=== PATIENT | female | born 1950 | race Caucasian/White ===

== ENCOUNTER → 2018-09-16 | Outpatient (CLI) | payer OTHER ==
[~2018-09-16] VITALS: Ht 162.6 cm; Wt 110.7 kg
[~2018-09-16] MED LIST: ADULT LOW DOSE81 MG PO; ALLEGRA ALLERG180 MG PO; ALLEGRA180 MG PO; CENTRUM SILVER1 EAC1 PO; CENTRUM SILVER1 EAC4 PO; CRESTOR40 MG PO; DIOVAN HCT 3201 EACH PO; DIPHENHIST50 MG PO; FISH OIL 1,0001 EAC5 PO; LIPITOR80 MG PO; OMEPRAZOLE OR; PREDNISONE 20 M20 MG PO; PRILOSEC OTC20 MG PO; TOPROL XL50 MG PO; TURMERIC500 M1 PO; VITAMIN D2000 UNIT PO; ZESTORETIC 20-1 EAC3 PO; ZOLOFT OR; ZOLOFT50 MG PO; ZYRTEC10 M5 PO
[2018-09-16 07:11] VITALS: BP 188/90
[2018-09-16 07:14] LABS: HEMATOCRIT 44.1 % (37.0-47.0); HEMOGLOBIN 14.7 gm/dL (12.0-15.0); MCH 30.3 pg (26.0-34.0); MCHC 33.3 g/dL (28.0-37.0); RBC 4.84 mil/uL (4.20-5.00); RDW 13.9 % (10.5-14.5); WBC 7.9 thou/uL (4.0-11.0)
[2018-09-16 07:21] LABS: CALCIUM 9.7 mg/dL (8.5-10.1); CREATININE 0.8 mg/dL (0.6-1.0); POTASSIUM 4.3 mmol/L (3.5-5.1)
--- NOTE | 2018-09-16 08:20 | EKG ---
[place] [address] [facility] [place] [address] ELECTROCARDIOGRAM REPORT Name: HUNTER ROBERTS Room #: REG CL Helio#: [id number] ������������������ Admission: 09/16/18 ������������������ Attend Phys: Nic Betancourt MD, Discharge: ������������������ Date of : 52 Report #: [id number] ����������������������������������������������������������������� [id number] THIS REPORT FOR: //name// [facility] Test Date: 2018-09-16 Test Time: 07:35:25 Pat Name: HUNTER ROBERTS Department: Room: Gender: F [employer] Team Member: Rosy OAKES : 1950 Requested By: Nic Betancourt Order Number: [id number] MD: Charles Byrd Measurements Intervals [place] Rate: 82 P: 19 CT: 178 QRS: 12 QRSD: 88 T: 39 QT: 372 QTc: 435 Interpretive Statements Sinus rhythm Abnormal R-wave progression, early transition Compared to ECG 12/02/2009 20:08:12 Poor R-wave progression no longer present Electronically Signed On 09-16-2018 8:20:13 HORTICULTURAL MANAGER by Charles Byrd [email or web address] ��������������������������������������������� <ELECTRONICALLY SIGNED> ���������������������������������������� By: Charles Byrd MD ��������������������������������������������� 09/16/18819 4 4 Charles Byrd MD /RICHARD
--- NOTE | 2018-09-16 18:27 | CATHLAB ---
[facility] [address] [place] [address] INVASIVE PROCEDURE REPORT Name: HUNTER ROBERTS Room #: REG Helio#: [id number] ������������� Admission: 09/16/18 ������������� Attend Phys: Nic Betancourt, Discharge: ��� ������������� ��� Date of : 52 Date of Service: 09/16/18 1827 �� Report #: [id number] �������� ��������������������������������������������[id number] THIS REPORT FOR: //name// APPROVED REPORT Study performed: 09/16/2018 07:36:44 Patient Details Patient Status: Out-Patient Room #: The patient is a 68 year-old female Event Personnel Nic Betancourt Senior Loss Control Specialist, Javier Breaux RN, Shay Ha Mahmood, Amber Monitor Procedures Performed Art Access - R femoral artery* 23263 Initial Mod Sed Same Phys/QHP Gr5y 683126 38216 Mod Sed Same Phys/QHP Ea 688273 Left Heart Cath w/or w/o Coronaries 8010691 [facility] Aortogram Abdominal Peripheral Angio 085639 Renal Bilateral Peripheral Angiography [id number] CVRENALBIL Hemostasis w/ Mynx Indication Chest pain Procedure Narrative The patient was brought electively to the Cardiac Catheterization Laboratory and was prepped and draped in a sterile manner. The Right Groin^ was infiltrated with 1% Lidocaine subcutaneous anesthesia. A PINNACLE 6FR Sheath #[id number] sheath was inserted into the RFA^. Coronary angiography was performed using coronary diagnostic catheters. The right coronary system was accessed and visualized with a JR 4 catheter. The left coronary system was accessed and visualized with a JL 4 catheter. The left ventricle was accessed and visualized with a Pigtail catheter. Left ventricular/Aortic Valve gradient assessed via catheter pullback. Left ventriculogram was performed in MANLEY projection. An aortogram of the abdominal aorta was performed. Pre-demployment femoral angiogram was performed . [facility] [place] [address] INVASIVE PROCEDURE REPORT Name: HUNTER ROBERTS BOBBY Room #: [facility] Helio#: [id number] ������������� Admission: 09/16/18 ������������� Attend Phys: Nic Betancourt, Discharge: ��� ������������� ��� Date of : 52 Date of Service: 09/16/18 1827 �� Report #: [id number] �������� ��������������������������������������������[id number] Closure device was deployed with a 6 Fr Mynx. The patient tolerated the procedure well and there were no complications associated with the procedure. There was no hematoma. Intraoperative Conscious Sedation Sedation start time: 08:53 Case end Time: 09:10 Fentanyl 50 mcg Versed 1.5 mg Fluoro Time: 1.25 minutes Dose: DAP 3699.00 cGycm2 431 mGy Contrast Type and Amount: Omnipaque 115 ml Hemodynamics The aortic pressure is 172/66 mmHg with a mean of 74 mmHg. The left ventricular pressure is 191/14 mmHg with a mean of mmHg. The left ventricular end diastolic pressure is 25 mmHg. Conclusion #1 normal left ventricular size and hyperdynamic LV function EF 60-65% #2 left main moderate size with mild distal tapered narrowing 20% giving rise to LAD and circumflex #3 LAD extends around the apex previously placed stent proximally is mild in-stent restenosis moderate disease of 40-50% distal to that segment extends around the apex. #4 circumflex OM mildly diseased no occlusive disease. #5 dominant right coronary artery with a mid vessel stent previously placed mild in-stent restenosis large preserved distal RCA PDA MARCEL widely patent #6 left renal artery selectively injected with a 50% proximal eccentric lesion consistent with the Doppler findings #7 mild ostial disease involving the single right renal artery. Recommendations and plan: Continue aggressive risk factor modification. No indication for coronary intervention. Follow-up will be arranged. Follow post cardiac catheter protocol. ��������������������������������������������� <ELECTRONICALLY SIGNED> ���������������������������������������� By: Nic Betancourt MD, FACC ��������������������������������������������� 09/16/181826 26 26 Nic Betancourt MD, FACC /INF
== END | disposition home or self-care (01) ==
LOC: CATH 06:47
PROVIDERS: Internal Medicine Cardiovascular Disease
DX: I25.10 Atherosclerotic heart disease of native coronary artery without angina pectoris (principal); I70.1 Atherosclerosis of renal artery; I10 Essential (primary) hypertension; E78.5 Hyperlipidemia, unspecified; K21.9 Gastro-esophageal reflux disease without esophagitis; E66.09 Other obesity due to excess calories; Z90.49 Acquired absence of other specified parts of digestive tract; Z87.442 Personal history of urinary calculi; Z98.890 Other specified postprocedural states; Z82.49 Family history of ischemic heart disease and other diseases of the circulatory system; Z87.891 Personal history of nicotine dependence; Z91.041 Radiographic dye allergy status; Z88.8 Allergy status to other drugs, medicaments and biological substances; Z79.82 Long term (current) use of aspirin; Z79.899 Other long term (current) drug therapy

== ENCOUNTER → 2019-12-28 | Outpatient (CLI) | payer OTHER | LOC: SJCVC 10:36 | DX: I49.9 Cardiac arrhythmia, unspecified (principal); I25.10 Atherosclerotic heart disease of native coronary artery without angina pectoris; E78.5 Hyperlipidemia, unspecified; I70.1 Atherosclerosis of renal artery; K21.9 Gastro-esophageal reflux disease without esophagitis; I10 Essential (primary) hypertension; E78.00 Pure hypercholesterolemia, unspecified; Z86.711 Personal history of pulmonary embolism; Z82.49 Family history of ischemic heart disease and other diseases of the circulatory system; Z79.82 Long term (current) use of aspirin; Z79.899 Other long term (current) drug therapy; Z87.891 Personal history of nicotine dependence ==

== ENCOUNTER → 2020-04-08 | Outpatient (CLI) | payer OTHER | LOC: SJCVCIMAG 06:48 | PROVIDERS: ATTEND Internal Medicine Cardiovascular Disease | DX: I10 Essential (primary) hypertension (principal); R00.0 Tachycardia, unspecified; I49.3 Ventricular premature depolarization; I25.10 Atherosclerotic heart disease of native coronary artery without angina pectoris; N28.1 Cyst of kidney, acquired; I70.1 Atherosclerosis of renal artery; Z87.891 Personal history of nicotine dependence ==

== ENCOUNTER → 2020-08-06 | Outpatient (CLI) | payer OTHER | LOC: SJCVC 11:25 | PROVIDERS: ATTEND Internal Medicine Cardiovascular Disease | DX: I25.10 Atherosclerotic heart disease of native coronary artery without angina pectoris (principal); I10 Essential (primary) hypertension; E78.00 Pure hypercholesterolemia, unspecified; I70.1 Atherosclerosis of renal artery; K21.9 Gastro-esophageal reflux disease without esophagitis; Z86.711 Personal history of pulmonary embolism; Z88.8 Allergy status to other drugs, medicaments and biological substances; Z79.82 Long term (current) use of aspirin; Z79.899 Other long term (current) drug therapy ==

== ENCOUNTER → 2021-02-24 | Outpatient (CLI) | payer OTHER | LOC: SJCVC 14:10 | PROVIDERS: ATTEND Internal Medicine Cardiovascular Disease | DX: I25.10 Atherosclerotic heart disease of native coronary artery without angina pectoris (principal); I10 Essential (primary) hypertension; E78.00 Pure hypercholesterolemia, unspecified; I70.1 Atherosclerosis of renal artery; Z86.711 Personal history of pulmonary embolism; K21.9 Gastro-esophageal reflux disease without esophagitis; Z87.891 Personal history of nicotine dependence; Z72.89 Other problems related to lifestyle; Z79.82 Long term (current) use of aspirin; Z79.899 Other long term (current) drug therapy; Z88.8 Allergy status to other drugs, medicaments and biological substances ==